=== PATIENT | male | born 1970 | race Caucasian/White ===

== ENCOUNTER 2018-02-17 09:53 | Emergency (ER) | payer MEDICAID, OTHER ==
[~2018-02-17] VITALS: Ht 185.4 cm; Wt 85.7 kg
[2018-02-17 10:12] VITALS: BP 140/105
== END 2018-02-17 10:49 | disposition home or self-care (01) ==
LOC: ED 10:43
DX: H00.024 Hordeolum internum left upper eyelid (principal); I10 Essential (primary) hypertension; Z72.9 Problem related to lifestyle, unspecified
CPT/HCPCS: 99283

== ENCOUNTER 2021-05-01 17:08 | Emergency (ER) | payer MEDICAID ==
[~2021-05-01] VITALS: Ht 185.4 cm; Wt 80.2 kg
[2021-05-01] MEDS ORDERED: ONDANSETRON 2MG/ML, 2ML IVPush ONE (18:00)
[2021-05-01] MEDS ORDERED: SODIUM CHLORIDE 0.9% 1,000ML IVBOLUS ONE (18:00)
[2021-05-01] MEDS ORDERED: SODIUM CHLORIDE FLUSH 10ML SYR IVF ONE (18:00)
[2021-05-01 18:17] LABS: BASOPHILS % (AUTO) 1 % (0-1); EOSINOPHILS % (AUTO) 0 % (1-7); LYMPHOCYTES % (AUTO) 12 % (22-44); MEAN CORPUSCULAR HEMOGLOBIN 29.2 pg (27.5-34.5); MEAN CORPUSCULAR HGB CONC 34.3 g/dL (33.2-36.2); MEAN PLATELET VOLUME 8.1 fL (7.4-10.4); MONOCYTES % (AUTO) 11 % (2-9); NEUTROPHILS % (AUTO) 77 % (42-75); PLATELET COUNT 467 x10^3/uL (130-400); RED BLOOD COUNT 5.52 x10^6/uL (4.38-5.82); RED CELL DISTRIBUTION WIDTH 14.1 % (9.4-14.8)
[2021-05-01 18:21] LABS: ALBUMIN 3.9 g/dL (3.4-5.0); ANION GAP 13 mmol/L (5-15); CALCIUM 9.9 mg/dL (8.5-10.1); CHLORIDE 97 mmol/L (98-107)
[2021-05-01 18:24] LABS: ALANINE AMINOTRANSFERASE 43 U/L (12-78); ALKALINE PHOSPHATASE 128 U/L (45-117); BILIRUBIN,TOTAL 2.5 mg/dL (0.2-1.0); CREATININE 1.59 mg/dL (0.7-1.3); TOTAL PROTEIN 8.8 g/dL (6.4-8.2)
[2021-05-01] MEDS ORDERED: ONDANSETRON 2MG/ML, 2ML ONE (20:02)
--- NOTE | 2021-05-01 21:59 | NUR ---
ua collected and walked to lab
[2021-05-01 22:29] LABS: MICROSCOPIC INDICATED
[2021-05-01] MEDS ORDERED: POTASSIUM CHLORIDE 20 MEQ TAB.ER.PRT PO ONE (22:30)
[2021-05-01] MEDS ORDERED: POTASSIUM CHLORIDE 20 MEQ TAB.ER.PRT ONE (22:52)
[2021-05-01] MEDS ORDERED: IBUPROFEN 600 MG TABLET ONE (22:52)
[2021-05-01 23:00] VITALS: BP 124/74
== END 2021-05-01 23:02 | disposition home or self-care (01) ==
LOC: ED 21:16
DX: R10.32 Left lower quadrant pain (principal); E86.0 Dehydration; N28.9 Disorder of kidney and ureter, unspecified; E87.6 Hypokalemia; E80.7 Disorder of bilirubin metabolism, unspecified; R00.0 Tachycardia, unspecified; I10 Essential (primary) hypertension
CPT/HCPCS: 36415; 76700; 80053; 80074; 81001; 83690; 85025; 87086; 96361; 96374; 99284; J2405; J7030

== ENCOUNTER 2021-05-06 10:29 | Inpatient (IN) | payer MEDICAID ==
[~2021-05-06] VITALS: Ht 185.4 cm; Wt 80.4 kg
--- NOTE | 2021-05-06 11:35 | NUR ---
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
--- NOTE | 2021-05-06 11:55 | NUR ---
PT STATES HAD 2ND COVID SHOT 2 WEEKS AGO. CAME TO HOSPITAL WEDNESDAY BECAUSE WAS VOMMITING UP WITH HENRY AND UNABLE TO PEE WITH DIZZINESS AND FEELING HE WAS GOING TO PASS OUT THIS ALL STARTED THAT WEDNESDAY AND PROGRESSIVELY GOT WORSE. CAME IN TODAY BECASUE THE SAME, HOT FLASHES, CANT PEE, FEELING DEHYDRATED. WHEN EATS FEELS LIKE HE CAN'T EAT ANY MORE BECAUSE FEELS NAUSEA.
[2021-05-06 12:00] LABS: BASOPHILS % (AUTO) 0 % (0-1); EOSINOPHILS % (AUTO) 0 % (1-7); LYMPHOCYTES % (AUTO) 17 % (22-44); MEAN CORPUSCULAR HGB CONC 35.2 g/dL (33.2-36.2); MEAN PLATELET VOLUME 8.5 fL (7.4-10.4); MONOCYTES % (AUTO) 12 % (2-9); NEUTROPHILS % (AUTO) 70 % (42-75); PLATELET COUNT 539 x10^3/uL (130-400); RED BLOOD COUNT 5.96 x10^6/uL (4.38-5.82); RED CELL DISTRIBUTION WIDTH 14.2 % (9.4-14.8)
[2021-05-06] MEDS ORDERED: METOCLOPRAMIDE 5 MG/ML, 2ML IVPush ONE (12:00)
[2021-05-06] MEDS ORDERED: SODIUM CHLORIDE 0.9% 1,000ML IVBOLUS ONE (12:00)
[2021-05-06] MEDS ORDERED: SODIUM CHLORIDE FLUSH 10ML SYR IVF ONE (12:00)
[2021-05-06 12:01] LABS: ALBUMIN 3.9 g/dL (3.4-5.0); ANION GAP 17 mmol/L (5-15); CALCIUM 9.3 mg/dL (8.5-10.1); CHLORIDE 85 mmol/L (98-107)
[2021-05-06 12:07] LABS: ALANINE AMINOTRANSFERASE 66 U/L (12-78); ALKALINE PHOSPHATASE 127 U/L (45-117); BILIRUBIN,TOTAL 2.6 mg/dL (0.2-1.0); CREATININE 2.15 mg/dL (0.7-1.3); TOTAL PROTEIN 8.4 g/dL (6.4-8.2)
[2021-05-06] MEDS ORDERED: METOCLOPRAMIDE 5 MG/ML, 2ML ONE (12:10)
--- NOTE | 2021-05-06 12:14 | NUR ---
PROVIDER NOTIFIED OF K OF 2.4.
[2021-05-06 12:25] LABS: MICROSCOPIC NOT IND
[2021-05-06] MEDS ORDERED: POTASSIUM CHLORIDE 20 MEQ TAB.ER.PRT PO ONE (13:30)
[2021-05-06] MEDS ORDERED: ACETAMINOPHEN 500 MG TABLET PO ONE (13:30)
[2021-05-06] MEDS ORDERED: POTASSIUM CHLORIDE 40 MEQ in SODIUM CHLORIDE 0.9% 500 ML IV ONE (13:30)
[2021-05-06] MEDS ORDERED: ACETAMINOPHEN 500 MG TABLET ONE (13:40)
[2021-05-06] MEDS ORDERED: POTASSIUM CHLORIDE 20 MEQ TAB.ER.PRT ONE (13:40)
[2021-05-06] MEDS ORDERED: ONDANSETRON 2MG/ML, 2ML IVPush PRN (14:30)
[2021-05-06] MEDS ORDERED: ACETAMINOPHEN 325 MG TABLET PO PRN (14:30)
[2021-05-06] MEDS ORDERED: ONDANSETRON ODT 4 MG PO PRN (14:30)
--- NOTE | 2021-05-06 14:44 | NUR ---
REPORT GIVEN TO DEANNE MARTINES TO ASSUME CARE.
--- NOTE | 2021-05-06 14:50 | NUR ---
PT SENT TO FLOOR WITH TECH AND ALL BELONGINGS
[2021-05-06 15:05] VITALS: BP 154/106
[2021-05-06] MEDS: HEPARIN 5,000 UNITS/ML, 1ML SQ SCH ×2 (16:18→23:53)
[2021-05-06 16:57] VITALS: BP 154/106
[2021-05-06] MEDS: NS + 40MEQ KCL 1,000 ML IV SCH (18:06)
[2021-05-06 18:11] VITALS: BP 145/99
[2021-05-07 00:12] VITALS: BP 131/87
[2021-05-07 04:38] LABS: BASOPHILS % (AUTO) 1 % (0-1); EOSINOPHILS % (AUTO) 1 % (1-7); LYMPHOCYTES % (AUTO) 32 % (22-44); MEAN CORPUSCULAR HEMOGLOBIN 29.3 pg (27.5-34.5); MEAN CORPUSCULAR HGB CONC 34.5 g/dL (33.2-36.2); MEAN PLATELET VOLUME 8.4 fL (7.4-10.4); MONOCYTES % (AUTO) 12 % (2-9); NEUTROPHILS % (AUTO) 54 % (42-75); PLATELET COUNT 342 x10^3/uL (130-400); RED CELL DISTRIBUTION WIDTH 14.4 % (9.4-14.8)
[2021-05-07 04:43] LABS: ANION GAP 9 mmol/L (5-15); CALCIUM 8.3 mg/dL (8.5-10.1); CHLORIDE 100 mmol/L (98-107); CHOLESTEROL, TOTAL 128 mg/dL (140-239); CREATININE 1.13 mg/dL (0.7-1.3); TRIGLYCERIDES 98 mg/dL (50-200); VLDL CHOLESTEROL 20 mg/dL (0-25)
[2021-05-07 04:45] LABS: CHOL/HDL RATIO 3.9; HDL CHOL % 26 % (26-37); HDL CHOLESTEROL (DIRECT) 33 mg/dL (40-60); LDL CHOLESTEROL,CALCULATED 75 mg/dL (54-169); LDL/HDL RATIO 2.3 (0.5-3.0)
[2021-05-07 06:17] VITALS: BP 138/88
[2021-05-07] MEDS: NS + 40MEQ KCL 1,000 ML IV SCH (07:57)
[2021-05-07] MEDS: HEPARIN 5,000 UNITS/ML, 1ML SQ SCH (07:57)
[2021-05-07] MEDS ORDERED: SODIUM CHLORIDE 0.9% 1,000 ML IV SCH (10:00)
[2021-05-07] MEDS ORDERED: POTASSIUM CHLORIDE 20 MEQ TAB.ER.PRT PO ONE (10:00)
== END 2021-05-07 16:11 | disposition home or self-care (01) | DRG 682 ==
LOC: ED 11:40 → EDIP 13:47 → 3N 14:48 → 4NW 14:59
PROVIDERS: ADMIT Family Medicine; ATTEND Family Medicine
DX: N17.9 Acute kidney failure, unspecified (principal); K85.80 Other acute pancreatitis without necrosis or infection; E87.1 Hypo-osmolality and hyponatremia; E86.0 Dehydration; E87.6 Hypokalemia; I10 Essential (primary) hypertension; R79.89 Other specified abnormal findings of blood chemistry; Z88.2 Allergy status to sulfonamides
CPT/HCPCS: 36415; 80048; 80053; 80061; 81003; 83690; 83735; 85025; 93005; 96361; 96374; G0378; J1644; J3480; J2765; J7030; J7040